=== PATIENT | male | born 1985 | race Caucasian/White ===

== ENCOUNTER 2018-03-01 05:51 | Emergency (ER) | payer SELFPAY ==
[~2018-03-01] VITALS: Ht 180.3 cm; Wt 59.1 kg
[2018-03-01 06:02] VITALS: BP 134/85
[2018-03-01] MEDS ORDERED: LITH300C3 PO (06:08)
[2018-03-01] MEDS ORDERED: FLUO-191 PO (06:08)
[2018-03-01] MEDS ORDERED: DIAZ5 PO (06:08)
== END 2018-03-01 07:00 | disposition left against medical advice (07) ==
LOC: EMS 05:52
DX: Z53.21 Procedure and treatment not carried out due to patient leaving prior to being seen by health care provider (principal)

== ENCOUNTER 2018-03-01 07:58 | Inpatient (IN) | payer MEDICAID ==
[~2018-03-01] VITALS: Ht 175.3 cm; Wt 59.1 kg
[~2018-03-01 07:58] MED LIST: DIAZ5 PO; FLUO-191 PO; LITH300C3 PO
[2018-03-01] MEDS ORDERED: LORazepam 2 MG TABLET PO ONE ×2 (08:45→13:45)
[2018-03-01 09:22] LABS: BASOPHILS % (AUTO) 0.6 % (0.0-2.0); EOSINOPHILS % (AUTO) 0.1 % (1.0-6.0); HEMATOCRIT 43.8 % (41-53); HEMOGLOBIN 15.3 g/dL (13.5-17.5); LYMPHOCYTES % (AUTO) 18.5 % (22.0-44.0); MEAN CORPUSCULAR HEMOGLOBIN 31.4 pg (26.0-34.0); MEAN CORPUSCULAR VOLUME 90 fL (80-100); MONOCYTES # (AUTO) 0.4 K/uL (0.1-1.0); NEUTROPHILS # (AUTO) 3.9 K/uL (1.8-7.7); NEUTROPHILS % (AUTO) 72.8 % (40.0-70.0); PLATELET COUNT (AUTO) 254 K/uL (150-450); RED BLOOD CELL COUNT(AUTO) 4.88 MIL/uL (4.50-5.90); RED CELL DISTRIBUTION WIDTH 13.8 % (11.5-14.5)
[2018-03-01 09:39] LABS: AMPHET/METH SCREEN,URINE NEGATIVE (NEGATIVE); BARBITURATE SCREEN, URINE NEGATIVE (NEGATIVE); BENZODIAZEPINES SCREEN,URINE NEGATIVE (NEGATIVE); CANNABINOID SCREEN,URINE NEGATIVE (NEGATIVE); COCAINE SCREEN,URINE NEGATIVE (NEGATIVE); METHADONE SCREEN, URINE NEGATIVE (NEGATIVE); OPIATE SCREEN,URINE NEGATIVE (NEGATIVE)
[2018-03-01 09:46] LABS: ANION GAP 14 mmol/L (8-16); CALCIUM, TOTAL 8.7 mg/dL (8.8-10.5); CARBON DIOXIDE 24 mmol/L (22-29); CHLORIDE 100 mmol/L (98-107); GLOMERULAR FILTR. RATE CALC > 60 mL/min (>60); GLUCOSE,RANDOM 92 mg/dL (70-110); POTASSIUM 3.7 mmol/L (3.5-5.1); SODIUM SERUM 138 mmol/L (136-145); UREA NITROGEN, BLOOD 6 mg/dL (7-18)
[2018-03-01 09:48] LABS: ALANINE AMINOTRANSFERASE 26 U/L (12-78); ALBUMIN 4.4 g/dL (3.4-5.0); ALKALINE PHOSPHATASE 68 U/L (46-116); ASPARTATE AMINOTRANSFERASE 25 U/L (15-37); BILIRUBIN,TOTAL 0.3 mg/dL (0.1-1.0); TOTAL PROTEIN, SERUM 9.3 g/dL (6.4-8.2)
[2018-03-01 09:59] LABS: PHENCYCLIDINE SCREEN,URINE NEGATIVE (NEGATIVE)
[2018-03-01] MEDS ORDERED: ZOLPIDEM TARTRATE 10 MG TABLET PO PRN (10:00)
[2018-03-01] MEDS ORDERED: HALOPERIDOL 5 MG TABLET PO PRN (10:00)
[2018-03-01] MEDS: LORazepam 2 MG TABLET PO PRN ×2 (15:10→19:48)
[2018-03-01] MEDS ORDERED: GuaiFENesin/D-METHORPHAN [SUGAR-FREE] 200-20MG/10 ML SYRUP UDCUP PO PRN (17:30)
[2018-03-01] MEDS ORDERED: TUBERCULIN, PURIFIED PROTEIN DERIVATIVE 5 TU/0.1 ML SYG ID ONE (17:30)
[2018-03-01] MEDS ORDERED: LOPERAMIDE HCL 2 MG CAPSULE PO PRN (17:30)
[2018-03-01] MEDS ORDERED: ACETAMINOPHEN 325 MG TABLET PO PRN (17:30)
[2018-03-01] MEDS ORDERED: PROMETHAZINE HCL 25 MG TABLET PO PRN (17:30)
[2018-03-01] MEDS ORDERED: MAGNESIUM HYDROXIDE SUSPENSION 30 ML UDCUP PO PRN (17:30)
[2018-03-01] MEDS ORDERED: MAG HYDROX/AL HYDROX/SIMETH ES 30 ML SUSPENSION UDCUP PO PRN (17:30)
[2018-03-01] MEDS ORDERED: HydrOXYzine PAMOATE 50 MG CAPSULE PO PRN (17:30)
[2018-03-01] MEDS ORDERED: OLANZapine 5 MG RAPDIS TABLET PO PRN (17:45)
[2018-03-01] MEDS: OLANZapine 10 MG RAPDIS TABLET PO SCH (20:54)
[2018-03-01] MEDS: THIAMINE HCL 100 MG TABLET PO SCH (21:00)
[2018-03-02] MEDS: FLUoxetine HCL 20 MG CAPSULE PO SCH (08:11)
[2018-03-02] MEDS: MULTIVITAMINS WITH MINERALS, THERAPEUTIC TABLET PO SCH (08:11)
[2018-03-02] MEDS: LITHIUM CARBONATE 300 MG CAPSULE PO SCH ×2 (08:11→20:58)
[2018-03-02] MEDS: THIAMINE HCL 100 MG TABLET PO SCH ×2 (08:27→20:58)
[2018-03-02 08:49] LABS: FREE T4 (FREE THYROXINE) 0.79 ng/dL (0.76-1.46); THYROID STIMULATING HORMONE 0.88 uIU/mL (0.36-3.74)
[2018-03-02] MEDS ORDERED: LITHIUM CARBONATE 300 MG CAPSULE PO SCH (09:00)
[2018-03-02] MEDS: FOLIC ACID 1 MG TABLET PO SCH (09:03)
[2018-03-02] MEDS: LORazepam 2 MG TABLET PO PRN (11:18)
[2018-03-02 19:40] VITALS: BP 135/90
[2018-03-02] MEDS: OLANZapine 10 MG RAPDIS TABLET PO SCH (20:58)
[2018-03-02] MEDS: DIAZEPAM 10 MG TABLET PO PRN (21:53)
[2018-03-03 07:52] VITALS: BP 116/83
[2018-03-03] MEDS ORDERED: NALTREXONE HCL 50 MG TABLET PO SCH (09:00)
[2018-03-03] MEDS: LITHIUM CARBONATE 300 MG CAPSULE PO SCH ×2 (09:28→16:23)
[2018-03-03] MEDS: THIAMINE HCL 100 MG TABLET PO SCH ×2 (09:29→16:23)
[2018-03-03] MEDS: FLUoxetine HCL 20 MG CAPSULE PO SCH (09:29)
[2018-03-03] MEDS: DIAZEPAM 10 MG TABLET PO PRN (09:29)
[2018-03-03] MEDS: FOLIC ACID 1 MG TABLET PO SCH (09:29)
[2018-03-03] MEDS: MULTIVITAMINS WITH MINERALS, THERAPEUTIC TABLET PO SCH (09:29)
[2018-03-03] MEDS ORDERED: LITH300C3 PO (16:07)
[2018-03-03] MEDS ORDERED: OLAN10TA22 PO (16:07)
[2018-03-03] MEDS ORDERED: NALT50TA PO (16:07)
[2018-03-03] MEDS ORDERED: FLUO-191 PO (16:07)
[2018-03-03 16:14] VITALS: BP 117/76
[2018-03-03] MEDS ORDERED: NALT50TA6 PO (17:22)
[2018-03-03] MEDS ORDERED: OLAN10TA6 PO (17:22)
== END 2018-03-03 18:10 | disposition home or self-care (01) | DRG 750 ==
LOC: EMS 08:00 → AHU 03-02 12:30 → B2S 03-03 12:12
PROVIDERS: ADMIT Psychiatry & Neurology Psychiatry; ATTEND Psychiatry & Neurology Psychiatry
DX: F25.1 Schizoaffective disorder, depressive type (principal); R45.851 Suicidal ideations; Z91.19 Patient's noncompliance with other medical treatment and regimen; Z59.0 Homelessness; F32.9 Major depressive disorder, single episode, unspecified; F10.20 Alcohol dependence, uncomplicated; F41.9 Anxiety disorder, unspecified; F41.0 Panic disorder [episodic paroxysmal anxiety]; Z65.3 Problems related to other legal circumstances; Z79.899 Other long term (current) drug therapy
CPT/HCPCS: 84439; 84443; 99285

== ENCOUNTER 2018-03-14 02:04 | Inpatient (IN) | payer MEDICAID ==
[~2018-03-14] VITALS: Ht 180.3 cm; Wt 59.4 kg
[~2018-03-14 02:04] MED LIST changes: -DIAZ5 PO; +NALT50TA PO; +NALT50TA6 PO; +OLAN10TA22 PO; +OLAN10TA6 PO
[2018-03-14 03:44] LABS: BASOPHILS % (AUTO) 0.5 % (0.0-2.0); EOSINOPHILS % (AUTO) 0.2 % (1.0-6.0); HEMATOCRIT 42.8 % (41-53); HEMOGLOBIN 15.1 g/dL (13.5-17.5); LYMPHOCYTES # (AUTO) 1.5 K/uL (1.0-4.8); LYMPHOCYTES % (AUTO) 31.5 % (22.0-44.0); MEAN CORPUSCULAR HEMOGLOBIN 31.8 pg (26.0-34.0); MEAN CORPUSCULAR HGB CONC 35.4 G/dL (31.0-37.0); MEAN CORPUSCULAR VOLUME 90 fL (80-100); MONOCYTES # (AUTO) 0.5 K/uL (0.1-1.0); MONOCYTES % (AUTO) 9.6 % (2.0-9.0); NEUTROPHILS # (AUTO) 2.8 K/uL (1.8-7.7); NEUTROPHILS % (AUTO) 58.2 % (40.0-70.0); PLATELET COUNT (AUTO) 290 K/uL (150-450); RED BLOOD CELL COUNT(AUTO) 4.76 MIL/uL (4.50-5.90); RED CELL DISTRIBUTION WIDTH 13.9 % (11.5-14.5)
[2018-03-14] MEDS ORDERED: ZOLPIDEM TARTRATE 10 MG TABLET PO PRN (03:45)
[2018-03-14] MEDS ORDERED: LORazepam 2 MG TABLET PO ONE (03:45)
[2018-03-14] MEDS ORDERED: DiphenhydrAMINE HCL 25 MG CAPSULE PO ONE (03:45)
[2018-03-14 03:48] LABS: ANION GAP 8 mmol/L (8-16); CALCIUM, TOTAL 8.4 mg/dL (8.8-10.5); CARBON DIOXIDE 28 mmol/L (22-29); CHLORIDE 106 mmol/L (98-107); CREATININE 0.71 mg/dL (0.60-1.30); GLOMERULAR FILTR. RATE CALC > 60 mL/min (>60); GLUCOSE,RANDOM 97 mg/dL (70-110); SODIUM SERUM 142 mmol/L (136-145); UREA NITROGEN, BLOOD 9 mg/dL (7-18)
[2018-03-14 03:55] LABS: ALANINE AMINOTRANSFERASE 27 U/L (12-78); ALBUMIN 4.1 g/dL (3.4-5.0); ALKALINE PHOSPHATASE 82 U/L (46-116); ASPARTATE AMINOTRANSFERASE 20 U/L (15-37); BILIRUBIN,TOTAL 0.2 mg/dL (0.1-1.0); TOTAL PROTEIN, SERUM 8.6 g/dL (6.4-8.2)
[2018-03-14 03:56] LABS: AMPHET/METH SCREEN,URINE NEGATIVE (NEGATIVE); BARBITURATE SCREEN, URINE NEGATIVE (NEGATIVE); BENZODIAZEPINES SCREEN,URINE NEGATIVE (NEGATIVE); CANNABINOID SCREEN,URINE NEGATIVE (NEGATIVE); COCAINE SCREEN,URINE NEGATIVE (NEGATIVE); METHADONE SCREEN, URINE NEGATIVE (NEGATIVE); OPIATE SCREEN,URINE NEGATIVE (NEGATIVE)
[2018-03-14 03:57] LABS: LITHIUM < 0.20 mmol/L (0.60-1.20)
[2018-03-14 03:58] LABS: PHENCYCLIDINE SCREEN,URINE NEGATIVE (NEGATIVE)
[2018-03-14] MEDS: OLANZapine 5 MG RAPDIS TABLET PO PRN ×2 (12:07→18:08)
[2018-03-14] MEDS: LORazepam 2 MG TABLET PO PRN ×2 (12:07→18:08)
[2018-03-14 12:21] VITALS: BP 136/74
[2018-03-15] MEDS: LORazepam 2 MG TABLET PO PRN (02:44)
[2018-03-15 07:22] LABS: THYROID STIMULATING HORMONE 0.78 uIU/mL (0.36-3.74)
[2018-03-15 07:41] LABS: FREE T4 (FREE THYROXINE) 0.93 ng/dL (0.76-1.46)
[2018-03-15 08:12] VITALS: BP 105/72
[2018-03-15 16:20] VITALS: BP 122/75
[2018-03-15] MEDS ORDERED: LOPERAMIDE HCL 2 MG CAPSULE PO PRN (16:30)
[2018-03-15] MEDS ORDERED: MAGNESIUM HYDROXIDE SUSPENSION 30 ML UDCUP PO PRN (16:30)
[2018-03-15] MEDS ORDERED: HydrOXYzine PAMOATE 50 MG CAPSULE PO PRN (16:30)
[2018-03-15] MEDS ORDERED: GuaiFENesin/D-METHORPHAN [SUGAR-FREE] 200-20MG/10 ML SYRUP UDCUP PO PRN (16:30)
[2018-03-15] MEDS ORDERED: CYANOCOBALAMIN 1,000 MCG/ML VIAL IM ONE (16:30)
[2018-03-15] MEDS ORDERED: PROMETHAZINE HCL 25 MG TABLET PO PRN (16:30)
[2018-03-15] MEDS ORDERED: ACETAMINOPHEN 325 MG TABLET PO PRN (16:30)
[2018-03-15] MEDS ORDERED: MAG HYDROX/AL HYDROX/SIMETH ES 30 ML SUSPENSION UDCUP PO PRN (16:30)
[2018-03-15] MEDS ORDERED: DIAZEPAM 10 MG TABLET PO PRN (16:30)
[2018-03-15] MEDS: GABAPENTIN 300 MG CAPSULE PO SCH (17:17)
[2018-03-15] MEDS: THIAMINE HCL 100 MG TABLET PO SCH (17:17)
[2018-03-15 17:20] VITALS: BP 128/79
[2018-03-15 18:20] VITALS: BP 119/76
[2018-03-15 19:20] VITALS: BP 125/75
[2018-03-15] MEDS ORDERED: LITHIUM CARBONATE 300 MG CAPSULE PO SCH (21:00)
[2018-03-15] MEDS ORDERED: PRAZOSIN HCL 1 MG CAPSULE PO SCH (21:00)
[2018-03-15 23:20] VITALS: BP 123/75
[2018-03-16 03:30] VITALS: BP 122/74
[2018-03-16] MEDS ORDERED: DIAZEPAM 10 MG TABLET PO PRN (07:00)
[2018-03-16 07:30] VITALS: BP 118/72
[2018-03-16 08:05] VITALS: BP 118/72
[2018-03-16] MEDS: GABAPENTIN 300 MG CAPSULE PO SCH ×3 (08:52→18:14)
[2018-03-16] MEDS: THIAMINE HCL 100 MG TABLET PO SCH ×2 (08:53→18:14)
[2018-03-16] MEDS ORDERED: MULTIVITAMINS WITH MINERALS, THERAPEUTIC TABLET PO SCH (09:00)
[2018-03-16] MEDS ORDERED: FLUoxetine HCL 20 MG CAPSULE PO SCH (09:00)
[2018-03-16] MEDS ORDERED: NALTREXONE HCL 50 MG TABLET PO SCH (09:00)
[2018-03-16] MEDS ORDERED: DIAZEPAM 10 MG TABLET PO SCH (09:00)
[2018-03-16] MEDS ORDERED: FOLIC ACID 1 MG TABLET PO SCH (09:00)
[2018-03-16 16:00] VITALS: BP 114/76
[2018-03-16] MEDS ORDERED: LITH300C3 PO (18:04)
[2018-03-16] MEDS ORDERED: PRAZ1 PO (18:04)
[2018-03-16] MEDS ORDERED: GABA-531 PO (18:04)
[2018-03-16] MEDS ORDERED: FLUO-191 PO (18:04)
[2018-03-16] MEDS ORDERED: NALT50TA PO (18:04)
[2018-03-18] MEDS ORDERED: DIAZEPAM 5 MG TABLET PO PRN (07:00)
[2018-03-18] MEDS ORDERED: DIAZEPAM 5 MG TABLET PO SCH (09:00)
[2018-03-18] MEDS ORDERED: LOPERAMIDE HCL 2 MG CAPSULE PO PRN (16:30)
[2018-03-19] MEDS ORDERED: DIAZEPAM 5 MG TABLET PO PRN (07:00)
== END 2018-03-16 20:10 | disposition home or self-care (01) | DRG 751 ==
LOC: EMS 02:05 → 3EC 04:00
PROVIDERS: ADMIT Psychiatry & Neurology Child & Adolescent Psychiatry; ATTEND Psychiatry & Neurology Psychiatry
DX: F33.2 Major depressive disorder, recurrent severe without psychotic features (principal); F41.0 Panic disorder [episodic paroxysmal anxiety]; F10.20 Alcohol dependence, uncomplicated; F17.200 Nicotine dependence, unspecified, uncomplicated; Z68.1 Body mass index [BMI] 19.9 or less, adult; Z65.3 Problems related to other legal circumstances; Z81.8 Family history of other mental and behavioral disorders
CPT/HCPCS: 84439; 84443; 99285; G0480; J3420

== ENCOUNTER 2018-05-21 18:34 | Emergency (ER) | payer MEDICAID ==
[~2018-05-21] VITALS: Ht 180.3 cm; Wt 57.0 kg
[~2018-05-21 18:34] MED LIST changes: +GABA-531 PO; -NALT50TA6 PO; -OLAN10TA22 PO; -OLAN10TA6 PO; +PRAZ1 PO
[2018-05-21 19:41] LABS: BASOPHILS % (AUTO) 0.9 % (0.0-2.0); EOSINOPHILS % (AUTO) 1.1 % (1.0-6.0); HEMATOCRIT 42.4 % (41-53); HEMOGLOBIN 14.8 g/dL (13.5-17.5); LYMPHOCYTES # (AUTO) 1.6 K/uL (1.0-4.8); LYMPHOCYTES % (AUTO) 38.9 % (22.0-44.0); MEAN CORPUSCULAR HEMOGLOBIN 31.3 pg (26.0-34.0); MEAN CORPUSCULAR HGB CONC 34.8 G/dL (31.0-37.0); MEAN CORPUSCULAR VOLUME 90 fL (80-100); MONOCYTES # (AUTO) 0.5 K/uL (0.1-1.0); MONOCYTES % (AUTO) 11.9 % (2.0-9.0); NEUTROPHILS % (AUTO) 47.2 % (40.0-70.0); PLATELET COUNT (AUTO) 239 K/uL (150-450); RED BLOOD CELL COUNT(AUTO) 4.72 MIL/uL (4.50-5.90); RED CELL DISTRIBUTION WIDTH 13.4 % (11.5-14.5)
[2018-05-21 19:50] LABS: ANION GAP 12 mmol/L (8-16); CALCIUM, TOTAL 8.6 mg/dL (8.8-10.5); CARBON DIOXIDE 25 mmol/L (22-29); CHLORIDE 104 mmol/L (98-107); CREATININE 0.83 mg/dL (0.60-1.30); GLOMERULAR FILTR. RATE CALC > 60 mL/min (>60); GLUCOSE,RANDOM 117 mg/dL (70-110); POTASSIUM 3.7 mmol/L (3.5-5.1); SODIUM SERUM 141 mmol/L (136-145); UREA NITROGEN, BLOOD 9 mg/dL (7-18)
[2018-05-21 19:57] LABS: ALANINE AMINOTRANSFERASE 41 U/L (12-78); ALBUMIN 3.9 g/dL (3.4-5.0); ALKALINE PHOSPHATASE 91 U/L (46-116); ASPARTATE AMINOTRANSFERASE 25 U/L (15-37); BILIRUBIN,TOTAL 0.4 mg/dL (0.1-1.0); TOTAL PROTEIN, SERUM 8.1 g/dL (6.4-8.2)
[2018-05-21 20:05] LABS: AMPHET/METH SCREEN,URINE NEGATIVE (NEGATIVE); BARBITURATE SCREEN, URINE NEGATIVE (NEGATIVE); BENZODIAZEPINES SCREEN,URINE POSITIVE (NEGATIVE); CANNABINOID SCREEN,URINE NEGATIVE (NEGATIVE); COCAINE SCREEN,URINE NEGATIVE (NEGATIVE); METHADONE SCREEN, URINE NEGATIVE (NEGATIVE); OPIATE SCREEN,URINE NEGATIVE (NEGATIVE); PHENCYCLIDINE SCREEN,URINE NEGATIVE (NEGATIVE)
[2018-05-22 03:52] VITALS: BP 118/70
== END 2018-05-22 04:37 | disposition home or self-care (01) ==
LOC: EMS 18:35
DX: F10.10 Alcohol abuse, uncomplicated (principal); R45.851 Suicidal ideations; F32.9 Major depressive disorder, single episode, unspecified; F41.9 Anxiety disorder, unspecified; Y90.8 Blood alcohol level of 240 mg/100 ml or more
CPT/HCPCS: 36415; 80053; 80307; 85025; 99285; G0480

== ENCOUNTER 2018-05-26 15:29 | Emergency (ER) | payer MEDICAID ==
[~2018-05-26] VITALS: Ht 180.3 cm; Wt 54.5 kg
[~2018-05-26 15:29] MED LIST changes: -GABA-531 PO; -LITH300C3 PO; -NALT50TA PO; -PRAZ1 PO
[2018-05-26 17:41] LABS: AMPHET/METH SCREEN,URINE NEGATIVE (NEGATIVE); BARBITURATE SCREEN, URINE NEGATIVE (NEGATIVE); BENZODIAZEPINES SCREEN,URINE NEGATIVE (NEGATIVE); CANNABINOID SCREEN,URINE NEGATIVE (NEGATIVE); COCAINE SCREEN,URINE NEGATIVE (NEGATIVE); METHADONE SCREEN, URINE NEGATIVE (NEGATIVE); OPIATE SCREEN,URINE NEGATIVE (NEGATIVE); PHENCYCLIDINE SCREEN,URINE NEGATIVE (NEGATIVE)
[2018-05-26 18:01] LABS: BASOPHILS % (AUTO) 0.4 % (0.0-2.0); EOSINOPHILS % (AUTO) 0 % (1.0-6.0); HEMATOCRIT 44.5 % (41-53); HEMOGLOBIN 15.4 g/dL (13.5-17.5); LYMPHOCYTES % (AUTO) 35.1 % (22.0-44.0); MEAN CORPUSCULAR HEMOGLOBIN 31.6 pg (26.0-34.0); MEAN CORPUSCULAR HGB CONC 34.6 G/dL (31.0-37.0); MEAN CORPUSCULAR VOLUME 92 fL (80-100); MONOCYTES # (AUTO) 0.4 K/uL (0.1-1.0); MONOCYTES % (AUTO) 7.2 % (2.0-9.0); NEUTROPHILS # (AUTO) 3.3 K/uL (1.8-7.7); NEUTROPHILS % (AUTO) 57.3 % (40.0-70.0); PLATELET COUNT (AUTO) 257 K/uL (150-450); RED BLOOD CELL COUNT(AUTO) 4.87 MIL/uL (4.50-5.90); RED CELL DISTRIBUTION WIDTH 13.7 % (11.5-14.5)
[2018-05-26 18:10] LABS: ANION GAP 12 mmol/L (8-16); CALCIUM, TOTAL 8.9 mg/dL (8.8-10.5); CARBON DIOXIDE 26 mmol/L (22-29); CHLORIDE 102 mmol/L (98-107); CREATININE 0.85 mg/dL (0.60-1.30); GLOMERULAR FILTR. RATE CALC > 60 mL/min (>60); GLUCOSE,RANDOM 99 mg/dL (70-110); POTASSIUM 3.9 mmol/L (3.5-5.1); SODIUM SERUM 140 mmol/L (136-145); UREA NITROGEN, BLOOD 9 mg/dL (7-18)
[2018-05-26 18:16] LABS: ALANINE AMINOTRANSFERASE 37 U/L (12-78); ALBUMIN 4.4 g/dL (3.4-5.0); ALKALINE PHOSPHATASE 73 U/L (46-116); ASPARTATE AMINOTRANSFERASE 26 U/L (15-37); BILIRUBIN,TOTAL 0.4 mg/dL (0.1-1.0); TOTAL PROTEIN, SERUM 8.9 g/dL (6.4-8.2)
[2018-05-26] MEDS ORDERED: HYDR10TA31 PO (18:20)
[2018-05-26 21:40] VITALS: BP 115/67
== END 2018-05-26 22:09 | disposition home or self-care (01) ==
LOC: EMS 15:30
DX: R45.851 Suicidal ideations (principal); F10.129 Alcohol abuse with intoxication, unspecified; F41.9 Anxiety disorder, unspecified; F17.210 Nicotine dependence, cigarettes, uncomplicated; Y90.8 Blood alcohol level of 240 mg/100 ml or more
CPT/HCPCS: 36415; 80053; 80307; 85025; 99285; G0480

== ENCOUNTER 2018-09-29 20:24 | Emergency (ER) | payer MEDICAID ==
[~2018-09-29 20:24] MED LIST changes: +HYDR10TA31 PO
== END 2018-09-29 22:20 | disposition left against medical advice (07) ==
LOC: EMS 20:25
DX: Z00.00 Encounter for general adult medical examination without abnormal findings (principal); Z53.21 Procedure and treatment not carried out due to patient leaving prior to being seen by health care provider

== ENCOUNTER 2019-03-11 13:43 | Emergency (ER) | payer MEDICAID ==
[~2019-03-11] VITALS: Ht 167.6 cm; Wt 68.0 kg
[2019-03-11] MEDS ORDERED: PROP60TA19 PO (14:00)
[2019-03-11] MEDS ORDERED: VENL-53 PO (14:00)
[2019-03-11] MEDS ORDERED: HYDR-4031 PO (14:00)
[2019-03-11] MEDS ORDERED: TRAZ-186 PO (14:00)
[2019-03-11] MEDS ORDERED: MIRT15TA98 PO (14:00)
[2019-03-11 14:35] LABS: BASOPHILS % (AUTO) 0.7 % (0.0-2.0); EOSINOPHILS % (AUTO) 0 % (1.0-6.0); HEMATOCRIT 42.5 % (41-53); HEMOGLOBIN 14.3 g/dL (13.5-17.5); LYMPHOCYTES # (AUTO) 1.6 K/uL (1.0-4.8); LYMPHOCYTES % (AUTO) 27.3 % (22.0-44.0); MEAN CORPUSCULAR HEMOGLOBIN 31.5 pg (26.0-34.0); MEAN CORPUSCULAR HGB CONC 33.6 G/dL (31.0-37.0); MEAN CORPUSCULAR VOLUME 94 fL (80-100); MONOCYTES # (AUTO) 0.5 K/uL (0.1-1.0); MONOCYTES % (AUTO) 8.5 % (2.0-9.0); NEUTROPHILS # (AUTO) 3.7 K/uL (1.8-7.7); NEUTROPHILS % (AUTO) 63.5 % (40.0-70.0); PLATELET COUNT (AUTO) 261 K/uL (150-450); RED BLOOD CELL COUNT(AUTO) 4.53 MIL/uL (4.50-5.90); RED CELL DISTRIBUTION WIDTH 15.1 % (11.5-14.5)
[2019-03-11 14:49] LABS: ANION GAP 15 mmol/L (8-16); CALCIUM, TOTAL 8.5 mg/dL (8.8-10.5); CARBON DIOXIDE 23 mmol/L (22-29); CHLORIDE 104 mmol/L (98-107); CREATININE 0.96 mg/dL (0.60-1.30); GLOMERULAR FILTR. RATE CALC > 60 mL/min (>60); GLUCOSE,RANDOM 89 mg/dL (70-110); POTASSIUM 3.6 mmol/L (3.5-5.1); SODIUM SERUM 142 mmol/L (136-145); UREA NITROGEN, BLOOD 15 mg/dL (7-18)
[2019-03-11 14:55] LABS: ALANINE AMINOTRANSFERASE 36 U/L (12-78); ALBUMIN 4.3 g/dL (3.4-5.0); ALKALINE PHOSPHATASE 57 U/L (46-116); ASPARTATE AMINOTRANSFERASE 32 U/L (15-37); BILIRUBIN,TOTAL 0.4 mg/dL (0.1-1.0); TOTAL PROTEIN, SERUM 8.3 g/dL (6.4-8.2)
[2019-03-11] MEDS ORDERED: HydrOXYzine HCL 25 MG TABLET PO ONE (15:30)
[2019-03-11 15:44] LABS: AMPHET/METH SCREEN,URINE NEGATIVE (NEGATIVE); BARBITURATE SCREEN, URINE NEGATIVE (NEGATIVE); BENZODIAZEPINES SCREEN,URINE NEGATIVE (NEGATIVE); CANNABINOID SCREEN,URINE NEGATIVE (NEGATIVE); COCAINE SCREEN,URINE NEGATIVE (NEGATIVE); METHADONE SCREEN, URINE NEGATIVE (NEGATIVE); OPIATE SCREEN,URINE NEGATIVE (NEGATIVE)
[2019-03-11 15:45] LABS: PHENCYCLIDINE SCREEN,URINE NEGATIVE (NEGATIVE)
[2019-03-11 20:41] VITALS: BP 112/69
== END 2019-03-11 20:46 | disposition home or self-care (01) ==
LOC: EMS 13:49
DX: F10.129 Alcohol abuse with intoxication, unspecified (principal); F17.210 Nicotine dependence, cigarettes, uncomplicated; F41.9 Anxiety disorder, unspecified; Y90.8 Blood alcohol level of 240 mg/100 ml or more; Z79.899 Other long term (current) drug therapy
CPT/HCPCS: 36415; 80053; 80307; 85025; 99285; G0480

== ENCOUNTER 2019-03-18 13:20 | Emergency (ER) | payer MEDICAID ==
[~2019-03-18] VITALS: Ht 180.3 cm; Wt 63.6 kg
[~2019-03-18 13:20] MED LIST changes: -FLUO-191 PO; +HYDR-4031 PO; -HYDR10TA31 PO; +MIRT15TA98 PO; +PROP60TA19 PO; +TRAZ-186 PO; +VENL-53 PO
[2019-03-18 14:36] LABS: BASOPHILS % (AUTO) 0.7 % (0.0-2.0); EOSINOPHILS % (AUTO) 0.1 % (1.0-6.0); HEMATOCRIT 42.2 % (41-53); HEMOGLOBIN 14.1 g/dL (13.5-17.5); LYMPHOCYTES # (AUTO) 1.6 K/uL (1.0-4.8); LYMPHOCYTES % (AUTO) 34.1 % (22.0-44.0); MEAN CORPUSCULAR HEMOGLOBIN 31.2 pg (26.0-34.0); MEAN CORPUSCULAR HGB CONC 33.4 G/dL (31.0-37.0); MEAN CORPUSCULAR VOLUME 94 fL (80-100); MONOCYTES # (AUTO) 0.4 K/uL (0.1-1.0); MONOCYTES % (AUTO) 8.8 % (2.0-9.0); NEUTROPHILS # (AUTO) 2.7 K/uL (1.8-7.7); NEUTROPHILS % (AUTO) 56.3 % (40.0-70.0); PLATELET COUNT (AUTO) 231 K/uL (150-450); RED BLOOD CELL COUNT(AUTO) 4.52 MIL/uL (4.50-5.90); RED CELL DISTRIBUTION WIDTH 14.8 % (11.5-14.5)
[2019-03-18 14:47] LABS: ANION GAP 15 mmol/L (8-16); CALCIUM, TOTAL 8.7 mg/dL (8.8-10.5); CARBON DIOXIDE 25 mmol/L (22-29); CHLORIDE 103 mmol/L (98-107); CREATININE 0.89 mg/dL (0.60-1.30); GLOMERULAR FILTR. RATE CALC > 60 mL/min (>60); GLUCOSE,RANDOM 98 mg/dL (70-110); POTASSIUM 3.5 mmol/L (3.5-5.1); SODIUM SERUM 143 mmol/L (136-145); UREA NITROGEN, BLOOD 11 mg/dL (7-18)
[2019-03-18 14:50] LABS: ALANINE AMINOTRANSFERASE 29 U/L (12-78); ALBUMIN 4.2 g/dL (3.4-5.0); ALKALINE PHOSPHATASE 57 U/L (46-116); ASPARTATE AMINOTRANSFERASE 26 U/L (15-37); BILIRUBIN,TOTAL 0.3 mg/dL (0.1-1.0); TOTAL PROTEIN, SERUM 8.2 g/dL (6.4-8.2)
[2019-03-18 16:19] LABS: AMPHET/METH SCREEN,URINE NEGATIVE (NEGATIVE); BARBITURATE SCREEN, URINE NEGATIVE (NEGATIVE); BENZODIAZEPINES SCREEN,URINE NEGATIVE (NEGATIVE); CANNABINOID SCREEN,URINE NEGATIVE (NEGATIVE); COCAINE SCREEN,URINE NEGATIVE (NEGATIVE); METHADONE SCREEN, URINE NEGATIVE (NEGATIVE); OPIATE SCREEN,URINE NEGATIVE (NEGATIVE)
[2019-03-18 16:20] LABS: PHENCYCLIDINE SCREEN,URINE NEGATIVE (NEGATIVE)
[2019-03-19 04:20] VITALS: BP 118/77
== END 2019-03-19 04:49 | disposition home or self-care (01) ==
LOC: EMS 13:23
DX: F32.9 Major depressive disorder, single episode, unspecified (principal); R45.851 Suicidal ideations; F10.129 Alcohol abuse with intoxication, unspecified; Y90.8 Blood alcohol level of 240 mg/100 ml or more; F41.9 Anxiety disorder, unspecified; F17.210 Nicotine dependence, cigarettes, uncomplicated; Z79.899 Other long term (current) drug therapy
CPT/HCPCS: 36415; 80053; 80307; 85025; 99285; G0480

== ENCOUNTER 2023-09-11 15:39 | Inpatient (IN) | payer MEDICAID ==
[~2023-09-11] VITALS: Ht 172.7 cm; Wt 60.6 kg
[~2023-09-11 15:39] MED LIST changes: -HYDR-4031 PO; +HYDR-4808 PO; +MIRT-142 PO; -MIRT15TA98 PO
[2023-09-11] MEDS ORDERED: GABA-1181 PO (16:16)
[2023-09-11] MEDS ORDERED: ESCI-8 PO (16:16)
[2023-09-11] MEDS ORDERED: MIRT-93 PO (16:16)
[2023-09-11] MEDS ORDERED: TRAZ-252 PO (16:16)
[2023-09-11] MEDS ORDERED: EMTR1TAB23 PO (16:16)
[2023-09-11] MEDS ORDERED: VENL-68 PO (16:16)
[2023-09-11 16:39] LABS: BASOPHILS % (AUTO) 0.6 % (0.0-2.0); EOSINOPHILS % (AUTO) 0.1 % (1.0-6.0); HEMOGLOBIN 12.2 g/dL (13.5-17.5); LYMPHOCYTES # (AUTO) 1.4 K/uL (1.0-4.8); LYMPHOCYTES % (AUTO) 21.5 % (22.0-44.0); MEAN CORPUSCULAR HEMOGLOBIN 32.8 pg (26.0-34.0); MEAN CORPUSCULAR HGB CONC 33.9 G/dL (31.0-37.0); MEAN CORPUSCULAR VOLUME 97 fL (80-100); MONOCYTES # (AUTO) 0.5 K/uL (0.1-1.0); MONOCYTES % (AUTO) 7.6 % (2.0-9.0); NEUTROPHILS # (AUTO) 4.6 K/uL (1.8-7.7); NEUTROPHILS % (AUTO) 70.2 % (40.0-70.0); PLATELET COUNT (AUTO) 253 K/uL (150-450); RED BLOOD CELL COUNT(AUTO) 3.72 MIL/uL (4.50-5.90); RED CELL DISTRIBUTION WIDTH 14.3 % (11.5-14.5); WHITE BLOOD COUNT (AUTO) 6.6 K/uL (4.5-11.0)
[2023-09-11 16:52] LABS: ANION GAP 11 mmol/L (8-16); CALCIUM, TOTAL 8.4 mg/dL (8.8-10.5); CARBON DIOXIDE 27 mmol/L (22-29); CHLORIDE 100 mmol/L (98-107); CREATININE 0.76 mg/dL (0.60-1.30); GLOMERULAR FILTR. RATE CALC > 60 mL/min (>60); GLUCOSE,RANDOM 89 mg/dL (70-110); POTASSIUM 3.9 mmol/L (3.5-5.1); SODIUM SERUM 138 mmol/L (136-145); UREA NITROGEN, BLOOD 5 mg/dL (7-18)
[2023-09-11 16:54] LABS: ALANINE AMINOTRANSFERASE 29 U/L (12-78); ALBUMIN 3.6 g/dL (3.4-5.0); ALKALINE PHOSPHATASE 56 U/L (46-116); ASPARTATE AMINOTRANSFERASE 38 U/L (15-37); BILIRUBIN,TOTAL 0.3 mg/dL (0.1-1.0); TOTAL PROTEIN, SERUM 8.2 g/dL (6.4-8.2)
[2023-09-11 17:28] LABS: LIPASE 27 U/L (16-77)
[2023-09-11] MEDS ORDERED: LORazepam 2 MG/ML VIAL IVP ONE (17:30)
[2023-09-11] MEDS ORDERED: MAGNESIUM SULFATE 2 GM, MVI, ADULT NO.1 WITH VIT K 10 ML, THIAMINE 100 MG, FOLIC ACID 1... IV ONE ×5 (17:30)
[2023-09-11] MEDS ORDERED: ONDANSETRON HCL 4 MG/2 ML VIAL IVP PRN (17:45)
[2023-09-11] MEDS ORDERED: ZOLPIDEM TARTRATE 5 MG TABLET PO PRN (17:45)
[2023-09-11] MEDS ORDERED: MAGNESIUM HYDROXIDE SUSPENSION 30 ML UDCUP PO PRN (17:45)
[2023-09-11] MEDS ORDERED: ACETAMINOPHEN 325 MG TABLET PO PRN (17:45)
[2023-09-11 18:49] LABS: COVID AG,FIA SOURCE NASAL SWAB
[2023-09-11 19:09] LABS: SARS-COV2 (COVID) ANTIGEN,FIA Negative (Negative)
[2023-09-11 21:58] VITALS: BP 130/93; PULSE 90; RESP 20; TEMP 97.6
[2023-09-12 03:05] VITALS: BP 128/81; PULSE 110; RESP 20; TEMP 98.8
[2023-09-12] MEDS: LORazepam 2 MG/ML VIAL IVP PRN ×2 (03:13→11:41)
[2023-09-12 04:46] LABS: APPEARANCE,URINE CLEAR (CLEAR); BILIRUBIN,URINE NEGATIVE (NEGATIVE); COLOR,URINE YELLOW (YELLOW); GLUCOSE, URINE (UA) NEGATIVE (NEGATIVE); LEUKOCYTE ESTERASE ,URINE NEGATIVE (NEGATIVE); NITRATE,URINE NEGATIVE (NEGATIVE); OCCULT BLOOD,URINE NEGATIVE (NEGATIVE); PH,URINE 5.5 (5.0-8.0); PH,URINE DRUG SCREEN 5.5 (5.0-8.0); PROTEIN,URINE TRACE mg/dL (NEGATIVE); SPECIFIC GRAVITIY, URINE 1.015 (1.003-1.030); UROBILINOGEN,URINE <=1.0 mg/dL (<=1.0)
[2023-09-12 04:52] LABS: ALCOHOL, URINE DRUG SCREEN POSITIVE (NEGATIVE); AMPHET/METH SCREEN,URINE NEGATIVE (NEGATIVE); BARBITURATE SCREEN, URINE POSITIVE (NEGATIVE); BENZODIAZEPINES SCREEN,URINE NEGATIVE (NEGATIVE); CANNABINOID SCREEN,URINE NEGATIVE (NEGATIVE); COCAINE SCREEN,URINE NEGATIVE (NEGATIVE); METHADONE SCREEN, URINE NEGATIVE (NEGATIVE); OPIATE SCREEN,URINE NEGATIVE (NEGATIVE); PHENCYCLIDINE SCREEN,URINE NEGATIVE (NEGATIVE)
[2023-09-12] MEDS ORDERED: LORazepam 0.5 MG TABLET PO ONE (05:00)
[2023-09-12 06:57] LABS: BASOPHILS % (AUTO) 0.3 % (0.0-2.0); EOSINOPHILS % (AUTO) 0.1 % (1.0-6.0); HEMATOCRIT 34.3 % (41-53); HEMOGLOBIN 11.9 g/dL (13.5-17.5); LYMPHOCYTES # (AUTO) 0.9 K/uL (1.0-4.8); LYMPHOCYTES % (AUTO) 12.5 % (22.0-44.0); MEAN CORPUSCULAR HEMOGLOBIN 33.1 pg (26.0-34.0); MEAN CORPUSCULAR HGB CONC 34.7 G/dL (31.0-37.0); MEAN CORPUSCULAR VOLUME 95 fL (80-100); MONOCYTES # (AUTO) 0.6 K/uL (0.1-1.0); NEUTROPHILS # (AUTO) 5.6 K/uL (1.8-7.7); NEUTROPHILS % (AUTO) 78.1 % (40.0-70.0); PLATELET COUNT (AUTO) 238 K/uL (150-450); WHITE BLOOD COUNT (AUTO) 7.2 K/uL (4.5-11.0)
[2023-09-12 07:23] LABS: ALANINE AMINOTRANSFERASE 31 U/L (12-78); ALBUMIN 3.3 g/dL (3.4-5.0); ALKALINE PHOSPHATASE 64 U/L (46-116); ANION GAP 11 mmol/L (8-16); ASPARTATE AMINOTRANSFERASE 40 U/L (15-37); BILIRUBIN,TOTAL 0.3 mg/dL (0.1-1.0); CALCIUM, TOTAL 8.2 mg/dL (8.8-10.5); CARBON DIOXIDE 26 mmol/L (22-29); CHLORIDE 96 mmol/L (98-107); CREATININE 0.92 mg/dL (0.60-1.30); GLOMERULAR FILTR. RATE CALC > 60 mL/min (>60); GLUCOSE,RANDOM 153 mg/dL (70-110); POTASSIUM 3.5 mmol/L (3.5-5.1); SODIUM SERUM 133 mmol/L (136-145); TOTAL PROTEIN, SERUM 7.4 g/dL (6.4-8.2); UREA NITROGEN, BLOOD 10 mg/dL (7-18)
[2023-09-12] MEDS ORDERED: SODIUM CHLORIDE 0.9% 1,000 ML ONE (07:39)
[2023-09-12] MEDS: 1: MAGNESIUM SULFATE 2 GM, MVI, ADULT NO.1 WITH VIT K 10 ML, THIAMINE 100 MG, FOLIC ACID IV SCH ×10 (07:45→20:40)
[2023-09-12 08:11] VITALS: BP 137/95; PULSE 99; RESP 15; TEMP 98.6
[2023-09-12] MEDS: MULTIVITAMINS WITH MINERALS, THERAPEUTIC TABLET PO SCH (08:59)
[2023-09-12] MEDS: FAMOTIDINE 20 MG TABLET PO SCH (08:59)
[2023-09-12 11:30] VITALS: BP 130/81; PULSE 91; RESP 18; TEMP 98.3
[2023-09-12] MEDS ORDERED: PROP10TA72 PO (12:25)
[2023-09-12] MEDS ORDERED: PRAZ1 PO (12:25)
[2023-09-12] MEDS: PROPRANOLOL HCL 10 MG TABLET PO SCH ×2 (12:30→21:37)
[2023-09-12] MEDS: ESCITALOPRAM OXALATE 10 MG TABLET PO SCH (12:30)
[2023-09-12 15:50] VITALS: BP 132/87; PULSE 97; RESP 19; TEMP 97.7
[2023-09-12] MEDS ORDERED: TraZODone HCL 50 MG TABLET PO SCH (21:00)
[2023-09-12] MEDS ORDERED: PRAZOSIN HCL 1 MG CAPSULE PO SCH (21:00)
[2023-09-12] MEDS ORDERED: MIRTAZAPINE 30 MG TABLET PO SCH (21:00)
[2023-09-12 21:15] VITALS: BP 135/96; PULSE 103; RESP 20; TEMP 98.2
[2023-09-13 05:45] VITALS: BP 110/79; PULSE 62; RESP 18; TEMP 97.6
[2023-09-13] MEDS: FAMOTIDINE 20 MG TABLET PO SCH (09:01)
[2023-09-13] MEDS: ESCITALOPRAM OXALATE 10 MG TABLET PO SCH (09:01)
[2023-09-13] MEDS: MULTIVITAMINS WITH MINERALS, THERAPEUTIC TABLET PO SCH (09:01)
[2023-09-13] MEDS: PROPRANOLOL HCL 10 MG TABLET PO SCH (09:01)
[2023-09-13 09:48] VITALS: BP 121/86; PULSE 86; RESP 18; TEMP 98.3
== END 2023-09-13 11:13 | disposition home or self-care (01) | DRG 53 ==
LOC: EMS 15:48 → 6N 20:55 → 5N 09-12 06:21 → 6N 09-12 10:54
PROVIDERS: ADMIT Internal Medicine; ATTEND Internal Medicine
DX: G40.89 Other seizures (principal); R45.851 Suicidal ideations; K70.30 Alcoholic cirrhosis of liver without ascites; F33.2 Major depressive disorder, recurrent severe without psychotic features; F10.139 Alcohol abuse with withdrawal, unspecified; F17.210 Nicotine dependence, cigarettes, uncomplicated; F64.0 Transsexualism; F41.9 Anxiety disorder, unspecified; F43.12 Post-traumatic stress disorder, chronic; Z20.822 Contact with and (suspected) exposure to COVID-19; Z79.899 Other long term (current) drug therapy
CPT/HCPCS: 80053; 80307; 81003; 83690; 85025; 93005; 99285; G0480; J2060; J2405; J3411; J3475; J3490; J7030

== ENCOUNTER 2023-12-13 20:26 | Inpatient (IN) | payer MEDICAID ==
[~2023-12-13] VITALS: Ht 175.3 cm; Wt 60.0 kg
[~2023-12-13 20:26] MED LIST changes: +EMTR1TAB23 PO; +ESCI-8 PO; +GABA-1181 PO; -HYDR-4808 PO; -MIRT-142 PO; +MIRT-93 PO; +PRAZ1 PO; +PROP10TA72 PO; -PROP60TA19 PO; -TRAZ-186 PO; +TRAZ-252 PO; -VENL-53 PO
[2023-12-13 21:47] LABS: BASOPHILS % (AUTO) 1.5 % (0.0-2.0); EOSINOPHILS % (AUTO) 0.1 % (1.0-6.0); HEMATOCRIT 38.2 % (41-53); HEMOGLOBIN 12.9 g/dL (13.5-17.5); LYMPHOCYTES # (AUTO) 1.6 K/uL (1.0-4.8); LYMPHOCYTES % (AUTO) 48.4 % (22.0-44.0); MEAN CORPUSCULAR HEMOGLOBIN 32.2 pg (26.0-34.0); MEAN CORPUSCULAR HGB CONC 33.8 G/dL (31.0-37.0); MEAN CORPUSCULAR VOLUME 95 fL (80-100); MONOCYTES # (AUTO) 0.4 K/uL (0.1-1.0); MONOCYTES % (AUTO) 12.5 % (2.0-9.0); NEUTROPHILS # (AUTO) 1.2 K/uL (1.8-7.7); NEUTROPHILS % (AUTO) 37.5 % (40.0-70.0); PLATELET COUNT (AUTO) 291 K/uL (150-450); RED BLOOD CELL COUNT(AUTO) 4.01 MIL/uL (4.50-5.90); RED CELL DISTRIBUTION WIDTH 14.1 % (11.5-14.5); WHITE BLOOD COUNT (AUTO) 3.2 K/uL (4.5-11.0)
[2023-12-13 22:08] LABS: ALCOHOL, BLOOD (SERUM) 360 mg/dL (0-10); ANION GAP 11 mmol/L (8-16); CARBON DIOXIDE 28 mmol/L (22-29); CHLORIDE 98 mmol/L (98-107); GLOMERULAR FILTR. RATE CALC > 60 mL/min (>60); GLUCOSE,RANDOM 104 mg/dL (70-110); POTASSIUM 3.9 mmol/L (3.5-5.1); SODIUM SERUM 137 mmol/L (136-145); UREA NITROGEN, BLOOD 5 mg/dL (7-18)
[2023-12-13 22:14] LABS: ALANINE AMINOTRANSFERASE 33 U/L (12-78); ALBUMIN 3.9 g/dL (3.4-5.0); ALKALINE PHOSPHATASE 49 U/L (46-116); ASPARTATE AMINOTRANSFERASE 39 U/L (15-37); BILIRUBIN,TOTAL 0.5 mg/dL (0.1-1.0); LIPASE 34 U/L (16-77); TOTAL PROTEIN, SERUM 8.3 g/dL (6.4-8.2)
[2023-12-14 03:09] LABS: AMPHET/METH SCREEN,URINE NEGATIVE (NEGATIVE); BARBITURATE SCREEN, URINE NEGATIVE (NEGATIVE); BENZODIAZEPINES SCREEN,URINE NEGATIVE (NEGATIVE); CANNABINOID SCREEN,URINE NEGATIVE (NEGATIVE); COCAINE SCREEN,URINE NEGATIVE (NEGATIVE); METHADONE SCREEN, URINE NEGATIVE (NEGATIVE); OPIATE SCREEN,URINE NEGATIVE (NEGATIVE); PHENCYCLIDINE SCREEN,URINE NEGATIVE (NEGATIVE)
[2023-12-14 03:16] LABS: ALCOHOL, URINE DRUG SCREEN POSITIVE (NEGATIVE)
[2023-12-14 04:05] LABS: COVID AG,FIA SOURCE NASAL SWAB
[2023-12-14] MEDS: LORazepam 2 MG/ML VIAL IVP ONE (04:17)
[2023-12-14 04:32] LABS: SARS-COV2 (COVID) ANTIGEN,FIA Negative (Negative)
[2023-12-14] MEDS: MAGNESIUM SULFATE 2 GM, MVI, ADULT NO.1 WITH VIT K 10 ML, THIAMINE 100 MG, FOLIC ACID 1... IV ONE (04:46)
[2023-12-14 05:29] VITALS: BP 122/85; PULSE 95; RESP 20; TEMP 98.2
[2023-12-14 08:42] VITALS: BP 120/84; PULSE 97; RESP 20; TEMP 97.8
[2023-12-14] MEDS ORDERED: MORPHINE SULFATE 2 MG/ML SYRINGE IVP PRN (10:45)
[2023-12-14] MEDS ORDERED: BISACODYL 10 MG RECTAL RECTAL SUPPOSITORY PR PRN (10:45)
[2023-12-14] MEDS ORDERED: MAGNESIUM HYDROXIDE SUSPENSION 30 ML UDCUP PO PRN (10:45)
[2023-12-14] MEDS ORDERED: ACETAMINOPHEN 325 MG TABLET PO PRN (10:45)
[2023-12-14] MEDS ORDERED: LORazepam 2 MG/ML VIAL IVP PRN (10:45)
[2023-12-14] MEDS ORDERED: HYDROCODONE/ACETAMINOPHEN 5-325 MG TABLET PO PRN (10:45)
[2023-12-14] MEDS ORDERED: ONDANSETRON HCL 4 MG/2 ML VIAL IVP PRN (10:45)
[2023-12-14] MEDS ORDERED: HydrOXYzine PAMOATE 50 MG CAPSULE PO PRN (11:45)
[2023-12-14] MEDS ORDERED: LOPERAMIDE HCL 2 MG CAPSULE PO PRN (11:45)
[2023-12-14] MEDS ORDERED: GuaiFENesin/D-METHORPHAN [SUGAR-FREE] 200-20MG/10 ML SYRUP UDCUP PO PRN (11:45)
[2023-12-14] MEDS: ChlordiazePOXIDE HCL 25 MG CAPSULE PO PRN (12:07)
[2023-12-14] MEDS: ACAMPROSATE CALCIUM 333 MG DR TABLET PO SCH (15:31)
[2023-12-14] MEDS: HEPARIN SODIUM,PORCINE 5,000 UNITS/ML VIAL SQ SCH (15:34)
[2023-12-14] MEDS: CYANOCOBALAMIN 1,000 MCG/ML VIAL IM ONE (15:34)
[2023-12-14 15:57] VITALS: BP 125/80; PULSE 85; RESP 20; TEMP 99
[2023-12-14 19:18] VITALS: BP 128/75; PULSE 86; RESP 20; TEMP 98.8; O2SAT 100
[2023-12-14] MEDS: PROPRANOLOL HCL 10 MG TABLET PO SCH (20:07)
[2023-12-14] MEDS: THIAMINE 100 MG TABLET PO SCH (20:08)
[2023-12-14] MEDS: PRAZOSIN HCL 1 MG CAPSULE PO SCH (20:08)
[2023-12-14] MEDS: MIRTAZAPINE 15 MG TABLET PO SCH (20:08)
[2023-12-14] MEDS: DOCUSATE SODIUM 100 MG CAPSULE PO SCH (20:08)
[2023-12-14 20:34] VITALS: BP 128/75; PULSE 86; RESP 20; TEMP 98.8
[2023-12-15 04:28] VITALS: BP 116/75; PULSE 75; RESP 20; TEMP 98.1
[2023-12-15] MEDS ORDERED: ChlordiazePOXIDE HCL 25 MG CAPSULE PO PRN (07:00)
[2023-12-15 07:02] LABS: BASOPHILS % (AUTO) 0.3 % (0.0-2.0); EOSINOPHILS % (AUTO) 0.5 % (1.0-6.0); HEMATOCRIT 35.1 % (41-53); LYMPHOCYTES # (AUTO) 1.2 K/uL (1.0-4.8); LYMPHOCYTES % (AUTO) 14.6 % (22.0-44.0); MEAN CORPUSCULAR HEMOGLOBIN 32.2 pg (26.0-34.0); MEAN CORPUSCULAR HGB CONC 34.1 G/dL (31.0-37.0); MEAN CORPUSCULAR VOLUME 95 fL (80-100); MONOCYTES # (AUTO) 0.5 K/uL (0.1-1.0); MONOCYTES % (AUTO) 6.1 % (2.0-9.0); NEUTROPHILS # (AUTO) 6.5 K/uL (1.8-7.7); NEUTROPHILS % (AUTO) 78.5 % (40.0-70.0); PLATELET COUNT (AUTO) 225 K/uL (150-450); RED BLOOD CELL COUNT(AUTO) 3.71 MIL/uL (4.50-5.90); RED CELL DISTRIBUTION WIDTH 13.6 % (11.5-14.5); WHITE BLOOD COUNT (AUTO) 8.3 K/uL (4.5-11.0)
[2023-12-15 07:09] LABS: ANION GAP 11 mmol/L (8-16); CALCIUM, TOTAL 8.7 mg/dL (8.8-10.5); CARBON DIOXIDE 24 mmol/L (22-29); CHLORIDE 97 mmol/L (98-107); CREATININE 0.68 mg/dL (0.60-1.30); GLOMERULAR FILTR. RATE CALC > 60 mL/min (>60); GLUCOSE,RANDOM 67 mg/dL (70-110); POTASSIUM 3.7 mmol/L (3.5-5.1); SODIUM SERUM 132 mmol/L (136-145); UREA NITROGEN, BLOOD 6 mg/dL (7-18)
[2023-12-15] MEDS: EMTRICITABINE/TENOFOVIR 200-300 MG TABLET PO SCH (08:06)
[2023-12-15] MEDS: MULTIVITAMINS WITH MINERALS, THERAPEUTIC TABLET PO SCH (08:07)
[2023-12-15] MEDS: ChlordiazePOXIDE HCL 25 MG CAPSULE PO SCH (08:07)
[2023-12-15] MEDS: GABAPENTIN 300 MG CAPSULE PO SCH (08:08)
[2023-12-15] MEDS: FOLIC ACID 1 MG TABLET PO SCH (08:08)
[2023-12-15] MEDS: PANTOPRAZOLE SODIUM 40 MG DR TABLET PO SCH (08:09)
[2023-12-15 08:58] VITALS: BP 131/79; PULSE 69; RESP 20; TEMP 97.8
[2023-12-15] MEDS ORDERED: GABAPENTIN 300 MG CAPSULE PO SCH (09:00)
[2023-12-15] MEDS ORDERED: CHLO5CAP4 PO (11:47)
[2023-12-15 16:19] VITALS: BP 134/79; PULSE 68; RESP 20; TEMP 97.6
[2023-12-15 20:11] VITALS: BP 113/67; PULSE 75; RESP 20; TEMP 97.9
[2023-12-15] MEDS: ZOLPIDEM TARTRATE 5 MG TABLET PO PRN (20:29)
[2023-12-16 05:05] VITALS: BP 103/69; PULSE 82; RESP 20; TEMP 97.7
[2023-12-16 06:55] LABS: BASOPHILS % (AUTO) 1.2 % (0.0-2.0); EOSINOPHILS % (AUTO) 2.2 % (1.0-6.0); HEMATOCRIT 36.3 % (41-53); HEMOGLOBIN 12.5 g/dL (13.5-17.5); LYMPHOCYTES # (AUTO) 1.5 K/uL (1.0-4.8); LYMPHOCYTES % (AUTO) 37.5 % (22.0-44.0); MEAN CORPUSCULAR HEMOGLOBIN 32.6 pg (26.0-34.0); MEAN CORPUSCULAR HGB CONC 34.3 G/dL (31.0-37.0); MEAN CORPUSCULAR VOLUME 95 fL (80-100); MONOCYTES # (AUTO) 0.5 K/uL (0.1-1.0); MONOCYTES % (AUTO) 13.4 % (2.0-9.0); NEUTROPHILS # (AUTO) 1.8 K/uL (1.8-7.7); NEUTROPHILS % (AUTO) 45.7 % (40.0-70.0); PLATELET COUNT (AUTO) 205 K/uL (150-450); RED BLOOD CELL COUNT(AUTO) 3.82 MIL/uL (4.50-5.90); RED CELL DISTRIBUTION WIDTH 13.6 % (11.5-14.5)
[2023-12-16 07:00] LABS: ANION GAP 10 mmol/L (8-16); CALCIUM, TOTAL 9.2 mg/dL (8.8-10.5); CARBON DIOXIDE 25 mmol/L (22-29); CHLORIDE 104 mmol/L (98-107); CREATININE 0.69 mg/dL (0.60-1.30); GLOMERULAR FILTR. RATE CALC > 60 mL/min (>60); GLUCOSE,RANDOM 99 mg/dL (70-110); POTASSIUM 3.5 mmol/L (3.5-5.1); SODIUM SERUM 139 mmol/L (136-145); UREA NITROGEN, BLOOD 8 mg/dL (7-18)
[2023-12-16 08:19] VITALS: BP 137/89; PULSE 112; RESP 18; TEMP 97.9
[2023-12-16 09:06] VITALS: BP 137/89; PULSE 102; RESP 14; TEMP 99.8
[2023-12-17] MEDS ORDERED: ChlordiazePOXIDE HCL 10 MG CAPSULE PO PRN (07:00)
[2023-12-17] MEDS ORDERED: ChlordiazePOXIDE HCL 10 MG CAPSULE PO SCH (09:00)
[2023-12-18] MEDS ORDERED: ChlordiazePOXIDE HCL 10 MG CAPSULE PO PRN (07:00)
== END 2023-12-16 11:20 | disposition home or self-care (01) | DRG 775 ==
LOC: EMS 20:26 → 6S 12-14 05:08
PROVIDERS: ADMIT Internal Medicine; ATTEND Internal Medicine
DX: F10.239 Alcohol dependence with withdrawal, unspecified (principal); F10.229 Alcohol dependence with intoxication, unspecified; R45.851 Suicidal ideations; K70.30 Alcoholic cirrhosis of liver without ascites; F33.9 Major depressive disorder, recurrent, unspecified; Z20.822 Contact with and (suspected) exposure to COVID-19; F43.10 Post-traumatic stress disorder, unspecified; F41.9 Anxiety disorder, unspecified; F64.0 Transsexualism; Z87.891 Personal history of nicotine dependence; Z79.899 Other long term (current) drug therapy
CPT/HCPCS: 80048; 80053; 80307; 83690; 85025; 99285; G0480; J1644; J2060; J3411; J3420; J3475; J3490; J7030